=== PATIENT | male | born 1965 | race Hispanic/Latino ===

== ENCOUNTER → 2019-01-29 | Day surgery (SDC) | payer OTHER ==
[~2019-01-29] MED LIST: LIDOCAINE HCL 2% LOCAL INJ 5 ML SDV VIAL INJ ONE; MIDAZOLAM HCL 2 MG/2 ML VIAL ONE; PROPOFOL IV EMULSION 10 MG/ML 50 ML VIAL ONE
[2019-01-29 13:50] VITALS: BP 100/78
== END | disposition home or self-care (01) ==
LOC: OR 10:00
PROVIDERS: ATTEND Internal Medicine
DX: Z12.11 Encounter for screening for malignant neoplasm of colon (principal); D12.2 Benign neoplasm of ascending colon; K63.89 Other specified diseases of intestine; K64.0 First degree hemorrhoids; R14.0 Abdominal distension (gaseous); Z88.8 Allergy status to other drugs, medicaments and biological substances
CPT/HCPCS: 45380; J2001; J2250; J2704

== ENCOUNTER → 2025-02-19 | Day surgery (SDC) | payer BC ==
[~2025-02-19] MED LIST changes: +LEVOTHYROXINE100 MCG PO; +OMEGA 3 1,0001 EACH PO; +PANTOPRAZOLE SO20 MG PO; +PROPOFOL IV EMULSION 10 MG/ML 20 ML VIAL ONE; -PROPOFOL IV EMULSION 10 MG/ML 50 ML VIAL ONE
[2025-02-19 10:57] VITALS: TEMP 97.6
[2025-02-19 11:25] VITALS: BP 130/70; PULSE 70; RESP 16; O2SAT 96
[2025-02-19] MEDS: LACTATED RINGER'S 1,000 ML ONE (13:16)
== END | disposition home or self-care (01) ==
LOC: OR 08:21
PROVIDERS: ATTEND Internal Medicine Gastroenterology
DX: Z12.11 Encounter for screening for malignant neoplasm of colon (principal); D12.4 Benign neoplasm of descending colon; K29.70 Gastritis, unspecified, without bleeding; K22.89 Other specified disease of esophagus; K31.89 Other diseases of stomach and duodenum; K21.9 Gastro-esophageal reflux disease without esophagitis; K44.9 Diaphragmatic hernia without obstruction or gangrene; R09.A2 Foreign body sensation, throat; K59.00 Constipation, unspecified; K57.30 Diverticulosis of large intestine without perforation or abscess without bleeding; K64.8 Other hemorrhoids; R63.4 Abnormal weight loss; E03.9 Hypothyroidism, unspecified; Z88.8 Allergy status to other drugs, medicaments and biological substances; Z01.810 Encounter for preprocedural cardiovascular examination; Z79.899 Other long term (current) drug therapy
CPT/HCPCS: 43239; 45385; 93005; J2003; J2250; J2704; J7121